=== PATIENT | male | born 1945 | race Caucasian/White ===

== ENCOUNTER 2020-02-01 08:00 | Outpatient (REF) | payer MEDICARE, OTHER, SELFPAY ==
[2020-02-01 09:28] LABS: Anion Gap 13 (12-20); Blood Urea Nitrogen 15 mg/dL (9-16); Carbon Dioxide 24 mmol/L (22-29); Chloride 106 mmol/L (96-108); Estimated Glomerular Filt Rate > 60; Potassium 3.9 mmol/l (3.3-5.1); Sodium 139 mmol/L (135-145)
== END 2020-02-01 08:01 | disposition home or self-care (01) ==
LOC: HO.LAB 08:00
PROVIDERS: PCP Family Medicine; Visit Provider Family Medicine
DX: I10 Essential (primary) hypertension (principal)
CPT/HCPCS: 80051; 82565; 84520

== ENCOUNTER 2020-12-20 07:47 | Outpatient (REF) | payer MEDICARE, OTHER, SELFPAY ==
[2020-12-20 08:45] LABS: Anion Gap 12 (12-20); Blood Urea Nitrogen 13 mg/dL (9-16); Carbon Dioxide 26 mmol/L (22-29); Chloride 107 mmol/L (96-108); Estimated Glomerular Filt Rate > 60; Potassium 4.1 mmol/L (3.3-5.1); Sodium 141 mmol/L (135-145)
== END 2020-12-20 07:48 | disposition home or self-care (01) ==
LOC: HO.LAB 07:47
PROVIDERS: PCP Family Medicine; Visit Provider Family Medicine
DX: I10 Essential (primary) hypertension (principal)
CPT/HCPCS: 36415; 80051; 82565; 84520

== ENCOUNTER 2021-07-15 06:42 | Outpatient (REF) | payer MEDICARE, OTHER, SELFPAY ==
[2021-07-15 08:21] LABS: Anion Gap 12 (12-20); Blood Urea Nitrogen 16 mg/dL (9-16); Carbon Dioxide 25 mmol/L (22-29); Chloride 106 mmol/L (96-108); Estimated Glomerular Filt Rate > 60; Potassium 3.9 mmol/L (3.3-5.1); Sodium 139 mmol/L (135-145); Uric Acid 4.5 mg/dL (3.4-7.0)
== END 2021-07-15 06:43 | disposition home or self-care (01) ==
LOC: HO.LAB 06:42
PROVIDERS: PCP Family Medicine; Visit Provider Family Medicine
DX: I10 Essential (primary) hypertension (principal); M10.9 Gout, unspecified
CPT/HCPCS: 36415; 80051; 82565; 84520; 84550

== ENCOUNTER 2022-01-31 07:00 | Outpatient (REF) | payer MEDICARE, OTHER, SELFPAY ==
[2022-01-31 08:09] LABS: Anion Gap 11 (12-20); Blood Urea Nitrogen 15 mg/dL (9-16); Carbon Dioxide 27 mmol/L (22-29); Chloride 104 mmol/L (96-108); Estimated Glomerular Filt Rate > 60; Sodium 138 mmol/L (135-145)
== END 2022-01-31 07:01 | disposition home or self-care (01) ==
LOC: HO.LAB 07:00
PROVIDERS: PCP Family Medicine; Visit Provider Family Medicine
DX: I10 Essential (primary) hypertension (principal)
CPT/HCPCS: 36415; 80051; 82565; 84520

== ENCOUNTER → 2022-02-03 09:26 | Outpatient (REF) | payer MEDICARE, OTHER, SELFPAY ==
--- NOTE | 2022-02-03 09:33 | CA_ITS ---
Transthoracic Echocardiogram Patient (Last, First, Middle): Miguel Mao, Gender: Male Date of : 1945 Age: 77 Procedure Date: 02/03/2022 Procedure Type: Transthoracic Echocardiogram Location: OP Height: 177.8 cm Weight: 99.79 kg BSA: 2.17 m2 Heart Rate: 59 bpm BP: 145 / 75 mmHg Police Crime Scene Technician: ALBERTA Parra MD: Robby Lopez MD High Density Press Operator: Josue Saenz MD Symptoms: R01.1 CARDIAC MURMUR R/O ,MR Study Quality: Adequate ECG Rhythm: Bradycardia Conclusions: - 1. Normal LV systolic function with impaired relaxation filling pattern with mild asymmetric septal hypertrophy next 2. Fibrocalcific aortic valve changes noted with no significant aortic stenosis with trivial aortic regurgitation 3. No gross pericardial effusion Findings Left Ventricle Normal left ventricular size, thickness, and systolic function. The visually estimated ejection fraction is between 60-65%. Regional wall motion abnormalities can not be excluded due to suboptimal endocardial definition. Spectral Doppler is indicative of an impaired relaxation filling pattern. E/E prime ratio is between 8 and 15 consistent with indeterminate filling pressures. There is mild septal asymmetric hypertrophy. Right Ventricle Normal right ventricular cavity size and systolic function. Atria The left atrium is normal in size. There is lipomatous hypertrophy of the interatrial septum. Interatrial shunt cannot be excluded. The right atrium is normal in size. Aortic Valve There is mild calcification of the aortic valve. There is moderate thickening of the aortic valve. There is no aortic valve stenosis. There is trace (trivial) aortic valve regurgitation. Mitral Valve There is mild anterior and posterior mitral leaflet thickening. There is trace mitral valve regurgitation. There is no mitral valve stenosis. Pulmonic Valve The pulmonic valve was not well visualized. Tricuspid Valve Likely normal tricuspid valve structure and function. Tricuspid regurgitation envelope is inadequate for calculation of right ventricular systolic pressure. Great Vessels All visible segments of the aorta are normal in size. The pulmonary artery was not well visualized. Venous The inferior vena cava was not well visualized. Pericardium/Pleural There is no evidence of pericardial effusion. Prior Study Comparison No prior study available for comparison. Measurements 2D Linear Measurements IVSd: 1.23 0.6-0.9/0.6-1.0 cm LVIDd: 5.13 3.9-5.3/4.2-5.9 cm LVIDd Index: 2.36 2.4-3.2/2.2-3.1 cm/m2 LVIDs: 2.91 2.0-3.6 cm LVPWd: 0.97 0.7-1.1 cm LA Diam: 3.70 2.7-3.8/3.0-4.0 cm LAIDs Index: 1.71 1.5-2.3 cm/m2 LV Mass: 269.52 67-162/88-224 g LV Mass Index: 124.20 43-95/49-115 g/m2 LVOT Diam: 2.20 3.0+(-)1.3 cm 2D Systolic Function EF 4C: 65.70 >55% EF 2C: 54.40 >55% EF BiP: 60.90 >55% Mitral Valve MV Pk E: 0.55 MV PK A: 0.77 MV Decel Time: 335.00 E/A: 0.70 E'Lateral: 7.83 E'Medial: 4.68 E/E' Med: 11.70 E/E' Lat: 7.00 PHT: 98.00 MVA PHT: 2.24 Decel [place]: 1.64 Aortic Valve AoV Pk Angelo: 1.55 AoV Mn Angelo: 1.04 AoV VTI: 0.35 AoV Pk Grad: 10.00 Aov Mn Grad: 5.00 WARREN Cont.VTI: 2.22 LVOT LVOT Pk Angel[place]: 0.87 LVOT Mn Angelo: 0.61 LVOT VTI: 0.20 LVOT Pk Grad: 3.00 LVOT Mn Grad: 2.00 LVOT Diam: 2.20 LVOT Area: 3.80 Diastolic Function MV Pk E: 0.55 MV Pk A: 0.77 E/A: 0.70 E'Medial: 4.68 E/E' Med: 11.70 E' Laterial: 7.83 E/E' Lat: 7.00 Right Ventricle TAPSE (mm): 19.90 TVS' Angel[place]: 12.60 Tricuspid Valve RA Press: 3.00 Great Vessels Aorta Sinus of Valsalva: 3.30 2.0-3.5 cm Ao Asc: 3.30 2.1-3.4 cm Pulmonary Valve PV Pk Angelo: 1.06 Peak PV Grad: 4.00 Updated in Other Vendor System with Status of Final Josue Saenz MD electronically signed on 02/06/2022 5:16:19 PM with status of Final
== END ==
LOC: HO.CARD 09:26
PROVIDERS: PCP Family Medicine; Visit Provider Family Medicine
DX: R01.1 Cardiac murmur, unspecified (principal)
CPT/HCPCS: 93306

== ENCOUNTER 2022-05-09 13:32 | Outpatient (REF) | payer OTHER, SELFPAY | END 2022-05-09 13:33 | disposition home or self-care (01) | LOC: HO.LNP 13:32 | PROVIDERS: Visit Provider Internal Medicine | DX: L72.9 Follicular cyst of the skin and subcutaneous tissue, unspecified (principal) | CPT/HCPCS: 87070; 87077; 87186; 87205 ==

== ENCOUNTER → 2022-05-15 10:25 | Outpatient (BNVA) | payer OTHER, MEDICAID, SELFPAY | PROVIDERS: PCP Family Medicine; Referring Provider Family Medicine; Visit Provider Surgery | DX: L72.3 Sebaceous cyst (principal) | CPT/HCPCS: 99202 ==

== ENCOUNTER 2022-08-08 06:28 | Outpatient (REF) | payer MEDICARE, SELFPAY ==
[2022-08-08 08:13] LABS: Anion Gap 14 (12-20); Carbon Dioxide 25 mmol/L (22-29); Chloride 106 mmol/L (96-108); Estimated Glomerular Filt Rate > 60; Potassium 4.2 mmol/L (3.3-5.1); Sodium 141 mmol/L (135-145); Uric Acid 4.7 mg/dL (3.4-7.0)
== END 2022-08-08 06:29 | disposition home or self-care (01) ==
LOC: HO.LAB 06:28
PROVIDERS: PCP Family Medicine; Visit Provider Family Medicine
DX: I10 Essential (primary) hypertension (principal); M10.9 Gout, unspecified
CPT/HCPCS: 36415; 80051; 82565; 84550

== ENCOUNTER 2023-02-09 08:21 | Outpatient (REF) | payer MEDICARE, SELFPAY ==
[2023-02-09 10:45] LABS: Anion Gap 16 (12-20); Blood Urea Nitrogen 13 mg/dL (9-16); Carbon Dioxide 21 mmol/L (22-29); Chloride 108 mmol/L (96-108); Estimated Glomerular Filt Rate > 60; Potassium 3.7 mmol/L (3.3-5.1); Sodium 141 mmol/L (135-145)
== END 2023-02-09 08:22 | disposition home or self-care (01) ==
LOC: HO.LAB 08:21
PROVIDERS: PCP Family Medicine; Visit Provider Family Medicine
DX: I10 Essential (primary) hypertension (principal)
CPT/HCPCS: 36415; 80051; 82565; 84520

== ENCOUNTER → 2023-06-19 09:50 | Outpatient (REF) | payer MEDICARE, SELFPAY ==
--- NOTE | 2023-06-19 09:53 | CA_ITS ---
Transthoracic Echocardiogram Patient (Last, First, Middle): Miguel Mao, Gender: Male Date of : 1945 Age: 78 Procedure Date: 06/19/2023 Procedure Type: Transthoracic Echocardiogram Location: OP Height: 203.2 cm Weight: 98.88 kg BSA: 2.39 m2 Heart Rate: 54 bpm BP: 136 / 74 mmHg Public Relations Account Supervisor: SB Referring MD: Robby Lopez MD Symptoms: R01.1 CA MURMUR I10 HTN R/O JAYLON Study Quality: Adequate ECG Rhythm: Bradycardia Conclusions: - The left ventricular systolic function is low normal. The visually estimated ejection fraction is between 50-55%. - There is moderate septal asymmetric hypertrophy. - There is mild calcification of the aortic valve. Findings Left Ventricle Normal left ventricular cavity size. The left ventricular systolic function is low normal. The visually estimated ejection fraction is between 50-55%. There is mild global hypokinesis. Diastolic function is normal for age. There is moderate septal asymmetric hypertrophy. LV peak GLS -15.2% (reduced). Right Ventricle Mildly increased right ventricular cavity size. There is low normal right ventricular systolic function. Atria Both atria are normal in size. Aortic Valve There is a normal trileaflet aortic valve. There is mild calcification of the aortic valve. There is no aortic valve stenosis. There is no aortic valve regurgitation. Mitral Valve The mitral valve appears normal. There is no mitral valve regurgitation. There is no mitral valve stenosis. Pulmonic Valve The pulmonic valve is likely normal. Tricuspid Valve Normal tricuspid valve structure. There is no tricuspid valve regurgitation. Tricuspid regurgitation envelope is inadequate for calculation of right ventricular systolic pressure. Great Vessels The asc aorta and aortic arch are normal in size. Venous The inferior vena cava was not well visualized. Pericardium/Pleural There is no evidence of pericardial effusion. Prior Study Comparison No significant change compared to prior study dated: 12/04/2021. Measurements 2D Linear Measurements IVSd: 1.36 0.6-0.9/0.6-1.0 cm LVIDd: 5.13 3.9-5.3/4.2-5.9 cm LVIDd Index: 2.15 2.4-3.2/2.2-3.1 cm/m2 LVIDs: 2.73 2.0-3.6 cm LVPWd: 0.87 0.7-1.1 cm LA Diam: 3.90 2.7-3.8/3.0-4.0 cm LAIDs Index: 1.63 1.5-2.3 cm/m2 LV Mass: 273.89 67-162/88-224 g LV Mass Index: 114.60 43-95/49-115 g/m2 LVOT Diam: 2.20 3.0+(-)1.3 cm 2D Systolic Function EF 4C: 47.30 >55% EF 2C: 51.70 >55% EF BiP: 51.20 >55% Mitral Valve MV Pk E: 0.82 MV PK A: 0.74 MV Decel Time: 223.00 E/A: 1.10 E'Lateral: 6.53 E'Medial: 4.90 E/E' Med: 16.70 E/E' Lat: 12.60 PHT: 65.00 MVA PHT: 3.38 Decel [place]: 3.68 Aortic Valve AoV Pk Angelo: 1.59 AoV Mn Angelo: 1.11 AoV VTI: 0.38 AoV Pk Grad: 10.00 Aov Mn Grad: 5.00 WARREN Cont.VTI: 2.31 LVOT LVOT Pk Angelo: 0.89 LVOT Mn Angelo: 0.65 LVOT VTI: 0.23 LVOT Pk Grad: 3.00 LVOT Mn Grad: 2.00 LVOT Diam: 2.20 LVOT Area: 3.80 Diastolic Function MV Pk E: 0.82 MV Pk A: 0.74 E/A: 1.10 E'Medial: 4.90 E/E' Med: 16.70 E' Laterial: 6.53 E/E' Lat: 12.60 Right Ventricle TAPSE (mm): 19.30 Tricuspid Valve RA Press: 3.00 Great Vessels Aorta Sinus of Valsalva: 3.60 2.0-3.5 cm Ao Asc: 3.50 2.1-3.4 cm Ao Arch: 3.10 Pulmonary Valve PV Pk Angelo: 0.89 Peak PV Grad: 3.00 Updated in Other Vendor System with Status of Final Cruz Finley MD electronically signed on 06/20/2023 12:40:25 PM with status of Final
== END ==
LOC: HO.CARD 09:50
PROVIDERS: PCP Family Medicine; Visit Provider Family Medicine
DX: R01.1 Cardiac murmur, unspecified (principal); I10 Essential (primary) hypertension
CPT/HCPCS: 93306; 93356

== ENCOUNTER → 2023-06-19 09:53 | Outpatient (BNV) | payer MEDICARE, SELFPAY | PROVIDERS: PCP Family Medicine; Visit Provider Internal Medicine | DX: I35.8 Other nonrheumatic aortic valve disorders (principal); I42.2 Other hypertrophic cardiomyopathy | CPT/HCPCS: 93306; 93356 ==

== ENCOUNTER 2023-08-04 06:14 | Outpatient (REF) | payer MEDICARE, SELFPAY ==
[2023-08-04 08:50] LABS: Alanine Aminotransferase 23 U/L (0-40); Anion Gap 14 (12-20); Aspartate Amino Transferase 26 U/L (5-37); Blood Urea Nitrogen 16 mg/dL (9-16); Carbon Dioxide 22 mmol/L (22-29); Chloride 108 mmol/L (96-108); Cholesterol 149 mg/dL (<200); Estimated Glomerular Filt Rate > 60; Glucose Fasting 102 mg/dL (60-99); HDL Cholesterol 33 mg/dL (>40); LDL Cholesterol Calculated 84 mg/dL (<100); Potassium 3.8 mmol/L (3.3-5.1); Sodium 140 mmol/L (135-145); Triglycerides 161 mg/dL (<150)
[2023-08-04 09:08] LABS: Estimated Average Glucose 111 mg/dL; Hemoglobin A1c % 5.5 % (<6.0)
== END 2023-08-04 06:15 | disposition home or self-care (01) ==
LOC: HO.LAB 06:14
PROVIDERS: PCP Family Medicine; Visit Provider Family Medicine
DX: I10 Essential (primary) hypertension (principal); Z86.39 Personal history of other endocrine, nutritional and metabolic disease
CPT/HCPCS: 36415; 80051; 80061; 82565; 82947; 83036; 84450; 84460; 84520

== ENCOUNTER → 2023-09-15 10:06 | Outpatient (REF) | payer MEDICARE, SELFPAY ==
--- NOTE | 2023-09-15 10:09 | HM_ITS ---
Conclusion: 1. Patient was monitored for total period of 2 days and 23 hours 2. Baseline was normal sinus rhythm with average heart of 61 beats per minute 3. No significant pauses noted but frequent sinus bradycardia noted with heart rate below 60 beats per minute 44% of time 4. Occasional Mobitz type 1 second-degree AV block noted 5. Occasional PACs and PVCs noted without any sustained arrhythmias 6. No patient marked events MTDD
== END ==
LOC: HO.CARD 10:06
PROVIDERS: PCP Family Medicine; Visit Provider Family Medicine
DX: I42.2 Other hypertrophic cardiomyopathy (principal); R42 Dizziness and giddiness
CPT/HCPCS: 93242

== ENCOUNTER → 2023-09-15 10:09 | Outpatient (BNV) | payer MEDICARE, SELFPAY | PROVIDERS: PCP Family Medicine; Visit Provider Internal Medicine Cardiovascular Disease | DX: R00.1 Bradycardia, unspecified (principal) | CPT/HCPCS: 93244 ==

== ENCOUNTER 2023-10-08 10:23 | Outpatient (AMB) | payer MEDICARE, SELFPAY ==
[2023-10-08 10:28] VITALS: BP 146/68; PULSE 54; BMI 31.1
--- NOTE | 2023-10-08 10:28 | MHC.OFFVIS ---
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 There is mention of shortness of breath but repeatedly asked him and he states he has got absolutely no shortness of breath. Hence not clear. He also denies any other complaints like exertional chest pains. Otherwise, no known cardiac history including coronary disease or myocardial infarction or cardiomyopathy or in fact any other cardiac concerns. Within limits of his activity, no specific concerns. He does have longstanding hypertension on medications. [facility] Medical History (Updated 10/08/23 @ 10:58 by Cruz Finley MD) Hypertension Family History (Updated 10/08/23 @ 10:33 by Rain Dukes CMA) Son Colon cancer Brother History of open heart surgery Social History (Updated 05/15/22 @ 10:37 by GISELA Gallardo) Alcohol intake: former Year quit: 2010 Patient Tobacco Use Status: Never used Tobacco Review of Systems Const Denies chills, Denies daytime sleepiness, Denies fatigue, Denies fever(s), Denies poor appetite, Denies snoring, Denies stops breathing during sleep, Denies weakness, Denies weight gain and Denies weight loss Eyes Denies loss of vision ENT Denies dizziness and Denies hearing loss Card Denies chest pain, Denies irregular heart rhythm, Denies claudication, Denies leg edema, Denies lightheadedness, Denies palpitations, Denies dyspnea on exertion and Denies orthopnea Resp Denies cough, Denies excessive phlegm production, Denies dyspnea on exertion, Denies snoring and Denies wheezing GI Denies abdominal pain, Denies hematochezia, Denies change in bowel habits, Denies nausea and Denies vomiting Denies dysuria and Denies urinary frequency Musc Denies arthralgias, Denies muscle weakness, Denies numbness and Denies other Skin/Breast Denies nail changes and Denies rash Neuro Denies Abnormal speech present, Denies dizziness, Denies loss of vision, Denies memory loss, Denies numbness and Denies weakness Psych Denies depression and Denies memory loss Endo Denies fatigue and Denies palpitations Kelechi/Lymph Denies easy bruising Aller/Immun Denies wheezing Physical Exam Vital Signs: Last Vital Signs Pulse 54 10/08/23 10:28 BP 146/68 H 10/08/23 10:28 BMI result Body Mass Index 31.1 Const General: comfortable and no acute distress Orientation/consciousness: patient oriented x3 HEENT Other: Unremarkable Head: Yes normal to inspection Neck Neck: Yes normal visual inspection Chest Chest palpation & inspection: normal inspection of the chest Resp Auscultation: clear to auscultation bilaterally Cardio Palpation: normal PMI Heart sounds: S1 normal heart sound present, S2 normal heart sound present, no gallops, Murmur heart sound present systolic II/ and at the right sternal border and no rubs GI Palpation (GI): Soft to palpation Back/Spine/Pelvis Other: unremarkable Skin General skin exam: no rashes or lesions noted Neuro General: patient oriented x3 Speech: No Abnormal speech present Extrem General: Yes normal to inspection Psych Mental Status: mental status grossly normal Office Procedures EKG Details: EKG with underlying sinus bradycardia at 54/Min; [place] prolongation to 248 milliseconds; [place]. [id number], Complete Assessment & Plan Assessment & Plan (1) Asymmetric septal hypertrophy: Code(s): I51.7 - Cardiomegaly Category: Medical (2) Aortic valve calcification: Code(s): I35.9 - Nonrheumatic aortic valve disorder, unspecified Category: Medical (3) Sinus bradycardia: Code(s): R00.1 - Bradycardia, unspecified Category: Medical (4) Mobitz type 1 second degree atrioventricular block: Code(s): I44.1 - Atrioventricular block, second degree Category: Medical (5) Essential hypertension: Code(s): I10 - Essential (primary) hypertension Category: Medical Plan Cardiac studies reviewed. EKG as above shows sinus bradycardia with prolonged [place]. Holter monitor shows underlying sinus rhythm, frequent sinus bradycardia, occasional Mobitz type 1 second-degree heart block with rare PACs/PVCs. Echocardiogram with LVEF of 50-55%. Slightly reduced peak global longitudinal strain at -15.2%. Moderate septal hypertrophy. Mild aortic valve calcification without any significant dysfunction. Clinically, asymptomatic. He seems to be on beta-blockers and he states dose has been recently decreased. We can stop it completely. He states that home blood pressures only the 120s to 130s. Advised to follow-up on that. Based on BP trend, may need to increase the lisinopril dosing. Septal hypertrophy is probably related to the longstanding hypertension. No specific management for that apart from hypertension treatment. With regard to aortic valve calcification, there is increased chance of aortic stenosis and we can follow-up with echocardiograms as needed. Coding Level of Care Code New Pt Level 4 (23327) Diagnoses Asymmetric septal hypertrophy I51.7 Aortic valve calcification I35.9 Sinus bradycardia R00.1 Mobitz type 1 second degree atrioventricular block I44.1 Essential hypertension I10 CPT Codes EKG - CPT: 63067-[id number], Complete ([id number])
== END 2023-10-08 10:52 | disposition home or self-care (01) ==
PROVIDERS: PCP Family Medicine; Visit Provider Internal Medicine
DX: I51.7 Cardiomegaly (principal); I35.9 Nonrheumatic aortic valve disorder, unspecified; R00.1 Bradycardia, unspecified; I44.1 Atrioventricular block, second degree; I10 Essential (primary) hypertension
CPT/HCPCS: 93010; 99214

== ENCOUNTER → 2023-10-08 10:23 | Outpatient (BNVA) | payer MEDICARE, SELFPAY | PROVIDERS: PCP Family Medicine; Visit Provider Internal Medicine | DX: I51.7 Cardiomegaly (principal); I35.9 Nonrheumatic aortic valve disorder, unspecified; I44.1 Atrioventricular block, second degree; I10 Essential (primary) hypertension; R00.1 Bradycardia, unspecified | CPT/HCPCS: 93005; 99212 ==

== ENCOUNTER → 2024-04-07 12:34 | Outpatient (BNVA) | payer MEDICARE, SELFPAY | PROVIDERS: PCP Family Medicine; Visit Provider Internal Medicine | DX: I10 Essential (primary) hypertension (principal); I51.7 Cardiomegaly; I35.9 Nonrheumatic aortic valve disorder, unspecified; I44.1 Atrioventricular block, second degree; R00.1 Bradycardia, unspecified | CPT/HCPCS: 99212 ==

== ENCOUNTER 2024-04-26 07:07 | Outpatient (REF) | payer MEDICARE, SELFPAY ==
[2024-04-26 08:22] LABS: Anion Gap 12 (12-20); Blood Urea Nitrogen 16 mg/dL (9-16); Carbon Dioxide 24 mmol/L (22-29); Chloride 108 mmol/L (96-108); Estimated Glomerular Filt Rate > 60; Potassium 3.9 mmol/L (3.3-5.1); Sodium 140 mmol/L (135-145)
== END 2024-04-26 07:08 | disposition home or self-care (01) ==
LOC: HO.LAB 07:07
PROVIDERS: PCP Family Medicine; Visit Provider Family Medicine
DX: I10 Essential (primary) hypertension (principal)
CPT/HCPCS: 36415; 80051; 82565; 84520

== ENCOUNTER 2024-05-31 10:00 | Outpatient (AMB) | payer MEDICARE, SELFPAY ==
[2024-05-31 10:39] VITALS: BP 140/90; PULSE 74; O2SAT 98
--- NOTE | 2024-05-31 10:39 | MHC.OFFWIV ---
Intake Vital Signs 05/31/24 10:39 Weight 227 lb BP 140/90 H Blood Pressure Location Rt brachial Position Sitting Pulse 74 Pulse Source Pulse Oximeter Pulse Oximetry (%) 98 Oxygen Delivery Method Room Air Intake Visit Reasons: EP Cyst/rash on LT side of face/under eye Intake Note: Patient here for possible cyst on left eye that started yesterday. Patient Tobacco Use Status: Never used Tobacco Allergies No Known Allergies [No Known Allergies*] Allergy (Unverified 05/31/24 10:41) Do you need a note to return to daycare/school/sports/work: No HPI HPI Comments History of Present Illness Details History of Present Illness - The patient is a 79-year-old male presenting with left eye swelling under his eye and towards his hairline x2d. - Yesterday, noticed a cyst or bubble on the left side of the left eye which was managed with ice application. - Today, reported progression to hardness and tenderness, with swelling and warmth underneath the left eye. - Denies systemic symptoms such as fever, and ocular symptoms including double vision or visual changes. 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 - no medications attempted for relief. Physical Exam General: Cooperative, healthy appearing, comfortable, no acute distress and well developed Orientation: Patient oriented x3 Limitations: No limitations Head: Normal to inspection Ears: Hearing grossly normal bilaterally Nose: Normal External nose present Face and sinus: edema and erythema of lower eyelid and infraorbital region, with warmth, extending to superior zygomatic area which also has a 1cm area of induration. Eyes: Appearance normal in the right eye; left eye has swelling infraorbital, as above Neck: Normal visual inspection and Yes full ROM Respiratory: Normal respiratory effort and able to speak in complete sentences. Skin: as above Neuro: Patient oriented x3 Extremities: Normal to inspection [facility] Medical History (Updated 05/31/24 @ 10:51 by Julissa Cervantes PA-C) Hypertension Family History Son Colon cancer Brother History of open heart surgery Social History Alcohol intake: former Year quit: 2010 Patient Tobacco Use Status: Never used Tobacco Review of Systems Const All systems reviewed & are unremarkable except as noted in HPI and below Physical Exam Vital Signs: Last Vital Signs Pulse 74 05/31/24 10:39 BP 140/90 H 05/31/24 10:39 Pulse Ox 98 05/31/24 10:39 Oxygen Delivery Method Room Air 05/31/24 10:39 Assessment & Plan Assessment & Plan (1) Preseptal cellulitis of left lower eyelid: Code(s): L03.213 - Periorbital cellulitis Plan: VSS, pt well appearing and PE remarkable for preseptal cellulitis and a small abscess on the left upper cheek. Sent Keflex and Doxy to cover MRSA. The current management strategy involves vigilant observation of the left periorbital swelling for any signs of worsening conditions, including any seeming like his eye is swollen or pushing out, eye movement discomfort/pain, fever development, or visual changes. Considering the patient's history of glaucoma surgery in the affected eye, careful monitoring is required to prevent any compromise to ocular function, particularly as this is the patient's good eye. . Patient was informed and verbally consented to the use of an ambient scribe for clinic note documentation during this visit. (2) Abscess of external cheek, left: Code(s): L02.01 - Cutaneous abscess of face Plan: as above Medications: New cephalexin 500 mg PO Q6H 28 caps 0RF doxycycline hyclate 100 mg PO BID 14 tabs 0RF Coding Level of Care Code New Pt Level 3 (49258) Diagnoses Preseptal cellulitis of left lower eyelid L03.213 Abscess of external cheek, left L02.01
--- OUTSIDE RECORDS SUMMARY | 2024-05-31 11:39 | XMS_ITS | Patient Health Record ---
[facility] Address [address] [place] [address] Care Team Providers Care Color Weigher Name Role Phone John FAUSTIN, Robby Primary Care Provider UnavailTanya Lyn Unavailable [phone] Allergies Allergen (clinical drug ingredient) Drug/Non Drug Allergy documented on EMR Reaction Allergy Type Onset Date Status Pollen Pollen Unknown Allergy Active Reason For Referral No Information Medications Medication SIG (Take, Route, Frequency, Duration) Notes Start Date End Date Status amLODIPine Besylate 10 MG 1 tablet Orall y Once a day for 30 day(s) Active Cephalexin 500 MG 1 capsule Orally ligia ry 12 hrs for 7 days Active Cephalexin 500 MG 1 capsule Orally ligia ry 12 hrs for 3 days Active Metoprolol Tartrate 25 MG 1 tablet with food Orally Twice a day for 30 day(s) Active Lisinopril 20 MG 1 tablet Orally Once a day for 30 day(s) Active Allopurinol 300 MG 1 tablet Orally Once a day for 30 day(s) Active Gabapentin 300 MG 1 capsule Orally Onc e a day for 30 day(s) Active Social History Tobacco Use: Social History Observation Description Date Details (start date - stop date) Never Smoker NA - NA Tobacco Use/Smoking Question Answer Notes Are you a: nonsmoker Additional Findings: Tobacco Non-User Current no n-smoker Alcohol Screen Question Answer Notes Did you have a drink containing alcohol in the p ast year? No Points 0 Interpretation Negative Tobacco use other than smoking: Question Answer Notes Are you an other tobacco user? No Plan Of Treatment No Information Insurance Providers Payer Name Payer Address Payer Phone Subscriber Number Group Number Insured Name Patient Relationship to Insured Coverage Start Date Coverage End Date [employer] [address] [place] [address] [id number] Miguel Charles Self - patient is the insured Medical (General) History Medical History History ICD Code Cataracts Gout High blood pressure Poor circulation Chicken pox Surgical History Surgery Date(Month/Year)
== END 2024-05-31 11:15 | disposition home or self-care (01) ==
PROVIDERS: PCP Family Medicine; Visit Provider Physician Assistant
DX: L03.213 Periorbital cellulitis (principal); L02.01 Cutaneous abscess of face

== ENCOUNTER → 2024-05-31 10:00 | Outpatient (BNVA) | payer MEDICARE, SELFPAY | PROVIDERS: PCP Family Medicine; Visit Provider Physician Assistant | DX: L03.213 Periorbital cellulitis (principal); L02.01 Cutaneous abscess of face | CPT/HCPCS: 99202 ==

== ENCOUNTER → 2024-08-03 10:02 | Outpatient (REF) | payer MEDICARE, SELFPAY ==
--- NOTE | 2024-08-03 10:09 | CA_ITS ---
Transthoracic Echocardiogram Patient (Last, First, Middle): Miguel Mao, Gender: Male Date of : 1945 Age: 79 Procedure Date: 08/03/2024 Procedure Type: Transthoracic Echocardiogram Location: OP Height: 177.8 cm Weight: 102.06 kg BSA: 2.19 m2 Heart Rate: bpm BP: 140 / 90 mmHg Php Mysql Web Developer: NAHED Referring MD: Robby Lopez MD Symptoms: I42.2 OTHER HYPERTROPHIC CARDIOMYOPATHY Study Quality: Fair ECG Rhythm: Sinus Conclusions: - The left ventricular systolic function is normal. The calculated ejection fraction is 59% by biplane method. - There is mild septal asymmetric hypertrophy. - No obvious valvular pathology seen on this study. Findings Left Ventricle Normal left ventricular cavity size. The left ventricular systolic function is normal. The calculated ejection fraction is 59% by biplane method. There is no evidence of regional wall motion abnormalities. Diastolic function is normal for age. There is mild septal asymmetric hypertrophy. Right Ventricle Normal right ventricular cavity size. There is low normal right ventricular systolic function. Atria The left atrium is mildly dilated. The right atrium is normal in size. Aortic Valve There is mild calcification of the aortic valve. There is no aortic valve stenosis. There is no aortic valve regurgitation. Mitral Valve The mitral valve appears normal. There is no mitral valve regurgitation. There is no mitral valve stenosis. Pulmonic Valve The pulmonic valve is likely normal. Tricuspid Valve There is no tricuspid valve regurgitation. Tricuspid regurgitation envelope is inadequate for calculation of right ventricular systolic pressure. Great Vessels The asc aorta and aortic arch are normal in size. Venous The inferior vena cava is normal in size and collapses greater than 50% with inspiration. Pericardium/Pleural There is no evidence of pericardial effusion. Prior Study Comparison No significant change compared to prior study dated: 06/19/2023. Recommendations, Care & Conclusions No obvious valvular pathology seen on this study. Measurements 2D Linear Measurements IVSd: 1.26 0.6-0.9/0.6-1.0 cm LVIDd: 4.87 3.9-5.3/4.2-5.9 cm LVIDd Index: 2.22 2.4-3.2/2.2-3.1 cm/m2 LVIDs: 3.37 2.0-3.6 cm LVPWd: 0.82 0.7-1.1 cm LA Diam: 3.10 2.7-3.8/3.0-4.0 cm LAIDs Index: 1.42 1.5-2.3 cm/m2 LV Mass: 229.46 67-162/88-224 g LV Mass Index: 104.78 43-95/49-115 g/m2 LVOT Diam: 2.20 3.0+(-)1.3 cm 2D Systolic Function EF 4C: 62.60 >55% EF 2C: 53.70 >55% EF BiP: 59.00 >55% Mitral Valve MV Pk E: 0.56 MV PK A: 0.75 MV Decel Time: 308.00 E/A: 0.70 E'Lateral: 8.49 E'Medial: 4.68 E/E' Med: 11.90 E/E' Lat: 6.60 PHT: 90.00 MVA PHT: 2.44 Decel [place]: 1.81 Aortic Valve AoV Pk Angelo: 1.69 AoV Mn Angel[place]: 1.23 AoV VTI: 0.42 AoV Pk Grad: 11.00 Aov Mn Grad: 7.00 WARREN Cont.VTI: 2.32 LVOT LVOT Pk Angel[place]: 0.95 LVOT Mn Angelo: 0.56 LVOT VTI: 0.26 LVOT Pk Grad: 4.00 LVOT Mn Grad: 2.00 LVOT Diam: 2.20 LVOT Area: 3.80 Diastolic Function MV Pk E: 0.56 MV Pk A: 0.75 E/A: 0.70 E'Medial: 4.68 E/E' Med: 11.90 E' Laterial: 8.49 E/E' Lat: 6.60 Right Ventricle TAPSE (mm): 25.70 TVS' Angel[place]: 8.59 Great Vessels Aorta Sinus of Valsalva: 3.53 2.0-3.5 cm Ao Asc: 3.30 2.1-3.4 cm Ao Arch: 2.70 Updated in Other Vendor System with Status of Final Cruz Finley MD electronically signed on 08/04/2024 4:14:42 PM with status of Final
--- OUTSIDE RECORDS SUMMARY | 2024-08-03 10:38 | XMS_ITS | Patient Health Record ---
[facility] Organization [facility] Address [address] [place] [address] Care Team Providers Care Collator Name Role Phone John FAUSTIN, Robby Primary Care Provider UnavailTanya Lyn Unavailable [phone] Allergies Allergen (clinical drug ingredient) Drug/Non Drug [...] Inc [address] [place] [address] [id number] Miguel Charles Self - patient is the insured Medical (General) History Medical History History ICD Code Cataracts Gout High blood pressure Poor circulation Chicken pox Surgical History Surgery Date(Month/Year)
== END ==
LOC: HO.CARD 10:02
PROVIDERS: Visit Provider Family Medicine
DX: I42.2 Other hypertrophic cardiomyopathy (principal)
CPT/HCPCS: 93306

== ENCOUNTER → 2024-08-03 10:09 | Outpatient (BNV) | payer MEDICARE, SELFPAY | PROVIDERS: Visit Provider Internal Medicine | DX: I42.2 Other hypertrophic cardiomyopathy (principal); I35.8 Other nonrheumatic aortic valve disorders | CPT/HCPCS: 93306 ==

== ENCOUNTER 2024-08-07 06:34 | Emergency (ER) | payer MEDICARE, MEDICAID, SELFPAY ==
--- NOTE | ~2024-08-07 | XR_ITS ---
CLINICAL HISTORY: pain and swelling ; PT states he scraped it tuesday 08/01 while working on car, left elbow scrape came in contact with used car motor oil. 4 view left elbow Comparison: None Findings: Bones intact. No dislocations. Mild degenerative changes throughout the elbow. No joint effusion. No radiopaque foreign body. IMPRESSION: Mild degenerative changes. No fracture, malalignment or suspicious bone lesion. No soft tissue gas. This document has been electronically signed by: Evangelista Rodriguez MD on 08/07/2024 09:12:26
[2024-08-07 06:37] VITALS: BP 131/69; PULSE 80; RESP 18; TEMP 36.6; O2SAT 97; BMI 32.3
--- NOTE | 2024-08-07 07:22 | PC.NURSE ---
left elbow has small wound with reddness/warmth in area. no drainage. awaits .
[2024-08-07 08:00] VITALS: BP 152/72; PULSE 69; RESP 19; TEMP 36.6; O2SAT 97
--- NOTE | 2024-08-07 08:41 | ED.GENADULT ---
HPI - General Adult General Chief complaint: Extremity Problem Stated complaint: elbow infection Time Seen by Provider: 08/07/24 08:40 Source: patient, RN notes reviewed and old records reviewed Mode of arrival: ambulatory Limitations: no limitations History of Present Illness ED Provider: Jerry [facility] narrative: Patient is a 79-year-old male presenting to the emergency department with complaint of pain and swelling, redness to left elbow. He states that he scraped his elbow accidentally on Thursday while performing an oil change. Now questioning infection as he noticed a small pustule in the center of the erythema. Denies fevers. Denies any decreased range of motion to elbow. Unknown last Tdap. MD complaint: elbow pain Onset (ago): day(s) Related Data Home Medications ?Medication ?Instructions ?Recorded ?Confirmed allopurinol 300 mg tablet 300 mg PO DAILY 10/08/23 04/07/24 amlodipine 10 mg tablet 10 mg PO DAILY 10/08/23 04/07/24 gabapentin 300 mg capsule 300 mg PO BEDTIME 10/08/23 04/07/24 Previous Rx's ?Medication ?Instructions ?Recorded lisinopril 30 mg tablet 30 mg PO DAILY #90 tabs 07/11/24 cephalexin 500 mg capsule 500 mg PO QID #28 caps 08/07/24 Allergies Allergy/AdvReac Type Severity Reaction Status Date / Time No Known Allergies Allergy Verified 08/07/24 06:40 [No Known Allergies*] Review of Systems Review of Systems: As per HPI Yes all other systems are reviewed and are negative Constitutional: Constitutional: Reports as per HPI [facility] Past Medical History Medical History (Updated 08/07/24 @ 10:13 by Glo Edwards NP) Hypertension Family History Family History Son Colon cancer Brother History of open heart surgery Social History Social History Alcohol intake: former Year quit: 2010 Patient Tobacco Use Status: Never used Tobacco Advance Directives: No Advance Directives Information Provided: Yes Do you have a plan to hurt others: No Plan Physical Exam ED Vital Signs: Vital Signs - 24 hr 08/07/24 06:37 08/07/24 08:00 Temperature 97.9 F 97.8 F Pulse Rate 80 69 Respiratory Rate 18 19 Blood Pressure 131/69 152/72 H Pulse Oximetry 97 97 Oxygen Delivery Method Room Air Room Air BMI result Body Mass Index 32.3 Vital signs have been reviewed and appear to be correct. Blood pressure normal. Heart rate normal. Respiratory rate normal. Temperature normal. Oxygen saturation normal. Const General: cooperative, healthy appearing and no acute distress Orientation/consciousness: oriented to person, oriented to place, oriented to time and patient oriented x3 Limitations: no limitations HENMT Head: Yes normocephalic and Yes atraumatic Ears: external ears normal General nose exam: Normal external nose present Face and sinus: Yes face symmetric Mouth: oropharynx normal and moist mucous membranes Throat: Yes uvula midline Eyes Pupils: Equal, round and reactive pupils present Neck Neck: Yes normal visual inspection and Yes supple Resp Effort & Inspection: normal respiratory effort and able to speak in complete sentences Auscultation: clear to auscultation bilaterally Cardio Rate: regular rate Rhythm: regular rhythm Heart sounds: S1 normal heart sound present and S2 normal heart sound present GI Palpation (GI): Soft to palpation and nontender Auscultation: normoactive bowel sounds General: Yes no CVA tenderness Back/Spine/Pelvis Back: no CVA tenderness Skin General skin exam: elasticity normal and turgor normal Neuro General: oriented to person, oriented to place, oriented to time, patient oriented x3, moves all extremities, no focal motor deficits and CN's II-XI intact bilaterally Cranial nerves: Yes Equal, round and reactive pupils present Cognition (Neuro): normal cognition Extrem Other: General: Yes full ROM, Yes no pedal edema and Yes no calf tenderness Left upper extremity: elbow/forearm Details: tenderness Location: of the lateral epicondyle, swelling Location: of the lateral epicondyle, normal ROM, distal pulses intact and other (3cm diameter area of erythema to lateral elbow with central pustule-see photo) Psych Mental Status: mental status grossly normal Affect: normal affect Thought process: Normal thought process present Medications Administered Discontinued Medications Generic Name Dose Route Start Last Admin Trade Name Freq PRN Reason Stop Dose Admin Diphtheria/Tetanus/Acell Pertussis 0.5 ml 08/07/24 08:46 08/07/24 09:27 Diphth,Pertus(Acell),Tet Adult 0.5 Ml Syringe IM 08/07/24 08:47 0.5 ml .ONCE ONE Administration Medical Decision Making Medical Decision Making [facility] Narrative: Patient is a 79-year-old male presenting to the emergency department with complaint of pain and swelling, redness to left elbow. On exam patient is awake, A+Ox3, VS WNL, afebrile, normal neurological exam without focal deficits, physical exam findings as above. Given reported symptoms and physical exam findings, initial differential includes but is not limited to cellulitis, bursitis. Do not suspect septic joint as patient has full ROM, is afebrile. Labs notable for no leuokocytosis, elevated CRP, normal ESR. X-ray notable for no evidence of foreign body or gas. My interpretation is in agreement with the radiologist's interpretation. Feel patient can be discharged home on PO antibiotics, denies known history of MRSA, will treat with cephalexin. Erythema outlined in the ED. Return precautions discussed at bedside. Patient verbalized understanding of and agreement with plan. Differential Diagnosis Differential Diagnoses: The differential diagnosis associated with the presentation includes As per [facility] Admission/Observation Consideration of admission/observation: Escalation of care including admission/observation considered Patient would have been admitted to the hospital had their work up had any findings where hospital admission was appropriate and their clinical presentation warranted hospital admission. Lab Data [facility] Lab Attestation statement: I reviewed the patient's lab results. as per [facility] 08/07/24 08:56 08/07/24 08:56 Labs: Lab Results 08/07/24 Range/Units 08:56 WBC 7.4 (4.8-10.8) X10*3/uL RBC 5.31 (4.60-5.80) X10*6/uL Hgb 16.5 (14.0-18.0) g/dl Hct 47.8 (42.0-52.0) % MCV 90.0 (80.0-98.0) fL MCH 31.1 (27.0-33.0) pg MCHC 34.5 (31.0-36.0) g/dl RDW 13.7 (11.0-16.0) % Plt Count 178 (160-400) X10*3/uL MPV 8.7 L (9.4-12.4) fL Immature Gran % (Auto) 0.1 (0.0-0.4) % Neut % (Auto) 61.1 (45-73) % Lymph % (Auto) 28.1 (20-40) % Forest % (Auto) 7.8 (2-11) % Eos % (Auto) 2.4 (0-4) % Baso % (Auto) 0.5 (0-2) % Lymph # (Auto) 2.1 (1.2-4.9) X10*3/uL Forest # (Auto) 0.6 (0.1-1.2) X10*3/uL Eos # (Auto) 0.2 (0.0-0.4) X10*3/uL Baso # (Auto) 0.0 (0.0-0.2) X10*3/uL Abs Immat Gran (auto) 0.01 (0.00-0.03) X10*3/uL Absolute Neuts (auto) 4.5 (2.0-8.3) x10*3/uL Absolute Nucleated RBC 0.000 (0.0-0.012) X10*3/uL Nucleated RBC % (auto) 0.0 (0.0-0.2) /100WBC ESR 15 (0-15) MM/HR Sodium 141 (135-145) mmol/L Potassium 3.8 (3.3-5.1) mmol/L Chloride 108 (96-108) mmol/L Carbon Dioxide 26 (22-29) mmol/L Anion Gap 11 L (12-20) BUN 13 (9-16) mg/dL Creatinine 1.11 (0.5-1.4) mg/dL Estim Creat Clear Calc 65.6 Estimated GFR > 60 Random Glucose 91 (60-115) mg/dL Calcium 9.6 (8.4-10.2) mg/dL C-Reactive Protein 3.51 H (< or = 0.50) mg/dL Independent Interpretation I performed an independent interpretation of an: Plain X-Ray Interpretation: No evidence of FB or gas left elbow XR. Radiology Impression Discussion of test interpretation with radiology: I have reviewed the radiologist's reading. Radiologist Impression: 4 view left elbow Comparison: None Findings: Bones intact. No dislocations. Mild degenerative changes throughout the elbow. No joint effusion. No radiopaque foreign body. IMPRESSION: Mild degenerative changes. No fracture, malalignment or suspicious bone lesion. No soft tissue gas. External Record Review External record reviewed: Inpatient record, Office record and Outpatient record Prescription Management I considered prescription management with: Antibiotic Discharge Plan Discharge Clinical Impression: Cellulitis of left elbow Patient Disposition: Home, Self-Care Instructions: Cellulitis (ED) Additional Instructions: You have been evaluated in the emergency department today for skin infection, also known as cellulitis. If the area of inflammation was outlined today in the ER, please return to the ER immediately if the area of redness increases beyond the border. Please take your prescribed antibiotics as directed for the full course of the medication. You can use Tylenol or ibuprofen per package instructions every 6 hours as needed for pain. If necessary, you can alternate these medications so that you can take one medication every 3 hours. For instance, at noon take ibuprofen, then at 3:00 p.m. take Tylenol, then at 6:00 p.m. take ibuprofen. Please schedule an appointment for follow-up with your primary care physician as soon as possible. Return to the emergency department if you experience recurrent vomiting, fevers greater than 100.4? F, increasing area of redness, warmth around the area, foul-smelling discharge from the area, increased tenderness around the area, or any other concerning symptoms. Prescriptions: New cephalexin 500 mg capsule 500 mg PO QID Qty: 28 0RF No Action lisinopril 30 mg tablet 30 mg PO DAILY Qty: 90 3RF allopurinol 300 mg tablet 300 mg PO DAILY amlodipine 10 mg tablet 10 mg PO DAILY gabapentin 300 mg capsule 300 mg PO BEDTIME Print Language: Jordanian
[2024-08-07 09:00] LABS: MANUAL DIFF FLAG NO
[2024-08-07 09:02] LABS: Basophils Percent Auto 0.5 % (0-2); Eosinophils Absolute Auto 0.2 X10*3/uL (0.0-0.4); Eosinophils Percent Auto 2.4 % (0-4); Hematocrit 47.8 % (42.0-52.0); Hemoglobin 16.5 g/dl (14.0-18.0); Imm Gran Abs Auto 0.01 X10*3/uL (0.00-0.03); Imm Gran Pct Auto 0.1 % (0.0-0.4); Lymphocytes Absolute Auto 2.1 X10*3/uL (1.2-4.9); Lymphocytes Percent Auto 28.1 % (20-40); Mean Corpuscular HGB Conc 34.5 g/dl (31.0-36.0); Mean Corpuscular Hemoglobin 31.1 pg (27.0-33.0); Mean Platelet Volume 8.7 fL (9.4-12.4); Monocytes Absolute Auto 0.6 X10*3/uL (0.1-1.2); Monocytes Percent Auto 7.8 % (2-11); Neutrophils Absolute Auto 4.5 x10*3/uL (2.0-8.3); Neutrophils Percent Auto 61.1 % (45-73); Platelet Count 178 X10*3/uL (160-400); Red Blood Count 5.31 X10*6/uL (4.60-5.80); Red Cell Distribution Width 13.7 % (11.0-16.0); White Blood Count 7.4 X10*3/uL (4.8-10.8)
[2024-08-07 09:20] LABS: Anion Gap 11 (12-20); Blood Urea Nitrogen 13 mg/dL (9-16); C Reactive Protein 3.51 mg/dL (< or = 0.50); Calcium 9.6 mg/dL (8.4-10.2); Carbon Dioxide 26 mmol/L (22-29); Chloride 108 mmol/L (96-108); Creatinine Clr Calc Pharmacy 65.6; Estimated Glomerular Filt Rate > 60; Glucose Random 91 mg/dL (60-115); Potassium 3.8 mmol/L (3.3-5.1); Sodium 141 mmol/L (135-145)
[2024-08-07] MEDS: Diphth,Pertus(ACell),Tet Adult 0.5 ML SYRINGE IM (09:27)
[2024-08-07 09:43] LABS: Erythrocyte Sedimentation Rate 15 MM/HR (0-15)
[2024-08-07 10:22] VITALS: BP 136/83; PULSE 62; RESP 19; TEMP 36.3; O2SAT 96
[2024-08-07 10:29] VITALS: BP 136/83; PULSE 62; RESP 19; TEMP 36.3; O2SAT 96
== END 2024-08-07 10:32 | disposition home or self-care (01) ==
PROVIDERS: Registered Nurse Emergency; Emergency Provider Emergency Medicine; PCP Internal Medicine
DX: L03.114 Cellulitis of left upper limb (principal); M25.522 Pain in left elbow; S50.312A Abrasion of left elbow, initial encounter; W22.8XXA Striking against or struck by other objects, initial encounter; Y93.89 Activity, other specified; Y92.9 Unspecified place or not applicable; Y99.9 Unspecified external cause status; Z23 Encounter for immunization
CPT/HCPCS: 36415; 73070; 80048; 85025; 85652; 86140; 90471; 90715; 99283; 99284

== ENCOUNTER → 2024-08-07 08:41 | Outpatient (BNV) | payer MEDICARE, MEDICAID, SELFPAY | PROVIDERS: Emergency Provider Emergency Medicine; PCP Internal Medicine; Visit Provider Radiology Vascular & Interventional Radiology | DX: M19.022 Primary osteoarthritis, left elbow (principal) | CPT/HCPCS: 73070 ==

== ENCOUNTER 2024-10-03 09:35 | Outpatient (AMB) | payer MEDICARE, SELFPAY ==
--- NOTE | 2024-10-03 09:36 | A.OFFPC_ITS ---
Vital Signs 10/03/24 09:37 10/03/24 09:39 Height 5 ft 10 in Weight 225 lb BMI 32.3 BP 110/46 L Blood Pressure Location Lt brachial Position Sitting Respiration 18 Pulse 64 Pulse Source Pulse Oximeter Temp 97.8 F Temp Source Temporal Artery Scan Pulse Oximetry (%) 96 Oxygen Delivery Method Room Air Intake Visit Reasons: 4 month follow up John ulloa Office Analyst Required: No Accompanied by: Self / Same As Patient Allergies No Known Allergies (No Known Allergies*) Allergy (Verified 10/03/24 09:57) Medication List - Last Reconciled 10/03/24 by Florentin Obrien MD allopurinol 300 mg PO DAILY amlodipine 10 mg PO DAILY gabapentin 300 mg PO BEDTIME lisinopril 30 mg PO DAILY loratadine (Claritin) 10 mg PO DAILY Tobacco use date assessed: 10/03/24 HPI 4 month follow up John pt HPI Details Wishing to establish his care here and is transferring from Dr Lopez [facility] Medical History (Updated 10/03/24 @ 09:59 by Florentin Obrien MD) Mobitz type 1 second degree atrioventricular block Aortic valve calcification Essential hypertension Hypertension Family History Son Colon cancer Brother History of open heart surgery Social History Alcohol intake: former Year quit: 2010 Patient Tobacco Use Status: Never used Tobacco e-Cigarette/Vaping Use: Never Used Questionnaire AUDIT C Alcohol Use Questionnaire (AUDIT-C) 1. How often do you have a drink containing alcohol?: Never Total Score: 0 Physical exam (Primary Care) Vital Signs: Last Vital Signs Temp 97.8 F 10/03/24 09:39 Pulse 64 10/03/24 09:39 Resp 18 10/03/24 09:39 BP 110/46 L 10/03/24 09:39 Pulse Ox 96 10/03/24 09:39 Oxygen Delivery Method Room Air 10/03/24 09:39 Care Plan Goal for BP management: BP is in range BMI result Body Mass Index 32.3 Tobacco/Smoking Status: Tobacco use Status Tobacco use date assessed 10/03/24 10/03/24 09:41 Patient Tobacco Use Status Never used Tobacco 10/03/24 09:41 e-Cigarette/Vaping Use Never Used 10/03/24 09:41 Coding Level of Care Code New Pt Level 4 (24507) Complex EM visit Add On G2211 Diagnoses Essential hypertension I10 Aortic valve calcification I35.9 Mobitz type 1 second degree atrioventricular block I44.1 Assessment & Plan Assessment & Plan (1) Essential hypertension: Code(s): I10 - Essential (primary) hypertension Category: Medical Plan: BP in range. BW revd. CRP was elevated in the past, will repeat the numbers again (2) Aortic valve calcification: Code(s): I35.9 - Nonrheumatic aortic valve disorder, unspecified Category: Medical (3) Mobitz type 1 second degree atrioventricular block: Code(s): I44.1 - Atrioventricular block, second degree Category: Medical Plan History of Present Illness - The patient is a 79-year-old male presenting with concerns about low blood pressure and heart murmur. - Hypotension: The patient reported a recent blood pressure reading of 110/40 mmHg, which is lower than his usual 160/80 mmHg. - Heart murmur: The patient has a history of a heart murmur since , but recent evaluations by Dr. Lopez suggested a different cardiac issue, leading to a referral to a glazier stained glass for further assessment. - Cystic skin lesions: The patient experiences recurrent cystic lesions on the skin, including the ear and face, which enlarge and eventually drain spontaneously. - Elbow infection: The patient had an elbow infection with elevated inflammatory markers, specifically C-reactive protein, noted during blood work in July. 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 He engages in regular exercise by cycling on a nearby bike path. 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 - Substance Use: Abstains from alcohol for 12 years and does not smoke. - Exercise: Regularly rides a bicycle on a nearby bike path. Review of Systems - Cardiovascular: Reports low blood pressure. Denies chest pain or palpitations. - Dermatological: Reports recurrent cystic lesions on the skin. Physical Exam General: Cooperative and healthy appearing Nutritional Appearance: Well nourished Orientation/consciousness: Patient oriented x3 Limitations: No limitations Head: Normal to inspection General: Appearance normal, both eyes and all related structures Neck: Normal visual inspection Chest: Normal palpation of entire chest wall Respiratory: Normal respiratory effort Neurology: Patient oriented x3 Results - Labs: Elevated C-reactive protein noted in previous blood work. Plan 1. Hypotension - Plan to monitor blood pressure closely and evaluate for any underlying causes. 2. Heart Murmur - Referral to glazier stained glass for further evaluation and potential Holter monitoring. 3. Cystic Skin Lesions - Monitor lesions for changes and manage symptomatically as needed. 4. Elbow Infection - Repeat C-reactive protein test to assess current inflammatory status. Discussion Notes I discussed with the patient the importance of monitoring his blood pressure and the potential need for further cardiac evaluation due to the heart murmur. We also talked about the management of his skin lesions and the need to repeat the C-reactive protein test to monitor inflammation. Follow-up care was arranged, and the patient was advised to continue his current medications. Patient Instructions - Continue taking all prescribed medications, including blood pressure and gout medications. - Monitor blood pressure regularly and report any significant changes. - Follow up with the glazier stained glass as scheduled for further evaluation of the heart murmur. - Observe skin lesions for any changes and report if they worsen. - Return for follow-up in three months or sooner if symptoms change. Orders: Orders C Reactive Protein Today I10 - Essential (primary) hypertension
[2024-10-03 09:37] VITALS: BMI 32.3
[2024-10-03 09:39] VITALS: BP 110/46; PULSE 64; RESP 18; TEMP 36.6; O2SAT 96
--- OUTSIDE RECORDS SUMMARY | 2024-10-03 10:08 | XMS_ITS | Patient Health Record ---
[facility] Address [address] [place] [address] Care Team Providers Care Substance Abuse Prevention Coordinator Name Role Phone John FAUSTIN, Robby Primary Care Provider UnavailTanya Lyn Unavailable [phone] Allergies Allergen (clinical drug ingredient) Drug/Non Drug Allergy documented on EMR Reaction Allergy Type Onset Date Status Pollen Pollen Unknown Allergy Active Reason For Referral No Information Medications Medication SIG (Take, Route, Frequency, Duration) Notes Start Date End Date Status amLODIPine Besylate 10 MG 1 tablet Orall y Once a day; Duration: 30 day(s) Active Cephalexin 500 MG 1 capsule Orally ligia ry 12 hrs; Duration: 7 days Active Cephalexin 500 MG 1 capsule Orally ligia ry 12 hrs; Duration: 3 days Active Metoprolol Tartrate 25 MG 1 tablet with food Orally Twice a day; Duration: 30 day(s) Active Lisinopril 20 MG 1 tablet Orally Once a day; Duration: 30 day(s) Active Allopurinol 300 MG 1 tablet Orally Once a day; Duration: 30 day(s) Active Gabapentin 300 MG 1 capsule Orally Onc e a day; Duration: 30 day(s) Active Social History Tobacco Use: [...] Medicare [employer] [address] [place] [address] [id number] Miguel Charles Self - patient is the insured Medical (General) History Medical History History ICD Code Cataracts Gout High blood pressure Poor circulation Chicken pox Surgical History Surgery Date(Month/Year)
== END 2024-10-03 09:53 | disposition home or self-care (01) ==
LOC: HO.HMCHD 09:35
PROVIDERS: PCP Family Medicine; Visit Provider Internal Medicine
DX: I10 Essential (primary) hypertension (principal); I35.9 Nonrheumatic aortic valve disorder, unspecified; I44.1 Atrioventricular block, second degree

== ENCOUNTER → 2024-10-03 10:22 | Outpatient (REF) | payer MEDICARE, MEDICAID, SELFPAY ==
--- NOTE | 2024-10-03 10:24 | HM_ITS ---
* Total monitoring time 2 days and 19 hours. * Underlying rhythm is sinus with an average rate of 68/Min. * Supraventricular ectopy noted with a burden of 1.45%. * Rare ventricular ectopy. * No significant pauses or high-grade AV blocks. * No patient markers or diary events. MTDD
== END ==
LOC: HO.CARD 10:22
PROVIDERS: PCP Internal Medicine; Visit Provider Internal Medicine
DX: Z76.89 Persons encountering health services in other specified circumstances (principal); I44.1 Atrioventricular block, second degree; I10 Essential (primary) hypertension; I35.9 Nonrheumatic aortic valve disorder, unspecified; L98.8 Other specified disorders of the skin and subcutaneous tissue; R01.1 Cardiac murmur, unspecified
CPT/HCPCS: 93242; 99202

== ENCOUNTER → 2024-10-03 10:24 | Outpatient (BNV) | payer MEDICARE, MEDICAID, SELFPAY | PROVIDERS: PCP Internal Medicine; Visit Provider Internal Medicine | DX: I47.10 Supraventricular tachycardia, unspecified (principal); I49.3 Ventricular premature depolarization | CPT/HCPCS: 93244 ==

== ENCOUNTER 2024-11-08 12:52 | Outpatient (AMB) | payer MEDICARE, MEDICAID, SELFPAY ==
--- NOTE | 2024-11-08 12:58 | A.OFFVIS_ITS ---
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 He had Mobitz type 1 heart block and beta-blockers were previously stopped. Otherwise, he is fine for the most part. No clear-cut symptoms. No activity limitations. No angina or any other concerns. [facility] Medical History Mobitz type 1 second degree atrioventricular block Aortic valve calcification Essential hypertension Hypertension Family History Son Colon cancer Brother History of open heart surgery Social History Alcohol intake: former Year quit: 2010 Patient Tobacco Use Status: Never used Tobacco e-Cigarette/Vaping Use: Never Used Review of Systems Const Denies chills, Denies fatigue, Denies fever(s), Denies frequent falls, Denies weakness, Denies weight gain and Denies weight loss ENT Denies dizziness Card Denies chest pain, Denies leg edema, Denies lightheadedness, Denies palpitations, Denies dyspnea and Denies dyspnea on exertion Resp Denies cough, Denies dyspnea and Denies dyspnea on exertion GI Denies hematochezia Musc Denies abnormal gait, Denies muscle weakness, Denies numbness, Denies radiating pain into limb and Denies tingling Neuro Denies abnormal gait, Denies dizziness, Denies frequent falls, Denies numbness, Denies tingling and Denies weakness Endo Denies fatigue and Denies palpitations Physical Exam Vital Signs: Last Vital Signs Pulse 64 11/08/24 12:59 BP 130/70 11/08/24 12:59 BMI result Body Mass Index 32.3 Const General: comfortable and no acute distress Orientation/consciousness: patient oriented x3 HEENT Other: Unremarkable Head: Yes normal to inspection Neck Neck: Yes normal visual inspection Chest Chest palpation & inspection: normal inspection of the chest Resp Auscultation: clear to auscultation bilaterally Cardio Palpation: normal PMI Heart sounds: S1 normal heart sound present, S2 normal heart sound present, no gallops, Murmur heart sound present systolic I/ and no rubs GI Palpation (GI): Soft to palpation Back/Spine/Pelvis Other: unremarkable Skin General skin exam: no rashes or lesions noted Neuro General: patient oriented x3 Extrem General: Yes normal to inspection Psych Mental Status: mental status grossly normal Office Procedures EKG Details: EKG with underlying sinus rhythm at 64/Min; OK prolongation to 236 milliseconds; cannot exclude old anterior infarct; [place] [id number], Complete Assessment & Plan Assessment & Plan (1) Asymmetric septal hypertrophy: Code(s): I51.7 - Cardiomegaly Category: Medical (2) Aortic valve calcification: Code(s): I35.9 - Nonrheumatic aortic valve disorder, unspecified Category: Medical (3) Sinus bradycardia: Code(s): R00.1 - Bradycardia, unspecified Category: Medical (4) Mobitz type 1 second degree atrioventricular block: Code(s): I44.1 - Atrioventricular block, second degree Category: Medical (5) Essential hypertension: Code(s): I10 - Essential (primary) hypertension Category: Medical Plan Cardiac studies reviewed. EKG with sinus bradycardia and prolonged OK. Initial Holter with underlying sinus rhythm, frequent sinus bradycardia, occasional Mobitz type 1 second-degree heart block with rare PACs/PVCs. In the recent repeat Holter, sinus rhythm with an average rate of 68/Min with frequent PACs and a burden of 1.45%. In the echocardiogram, LVEF is 59%. Mild septal hypertrophy. Low normal RV systolic function. Mild aortic valve calcification. With regard to the conduction system disease as well as supraventricular ectopy, he needs screening for obstructive sleep apnea. Order home sleep study. He agrees. He has been taken off beta-blockers. Blood pressure seems to be stable on the current regimen of amlodipine/lisinopril. With regard to the septal hypertrophy itself, no specific significance and related to the hypertension itself. With regard to the aortic valve calcification, again no specific implications for now but there is a higher chance of developing calcific aortic stenosis in the future. Follow up echocardiogram as needed. Follow up in one year. Discussion Notes During the visit, we discussed the patient's cardiovascular health, noting improved blood pressure control with current medication. We also addressed the issue of bradycardia and the potential for sleep apnea, recommending a sleep study to further evaluate any underlying conditions that may affect heart rhythm. Patient was informed and verbally consented to the use of an ambient scribe for clinic note documentation during this visit. Orders: Orders RT home sleep study Today G47.33 - Obstructive sleep apnea (adult) (pediatric) Patient Instructions: - Continue current hypertension medication regimen. - Monitor for any symptoms of bradycardia, such as dizziness or fatigue, and report them. - Undergo a sleep study to evaluate for sleep apnea. Coding Level of Care Code Est Pt Level 4 (37688) Complex EM visit Add On G2211 Diagnoses Asymmetric septal hypertrophy I51.7 Aortic valve calcification I35.9 Sinus bradycardia R00.1 Mobitz type 1 second degree atrioventricular block I44.1 Essential hypertension I10 CPT Codes EKG - CPT: 67343-[id number], Complete ([id number])
[2024-11-08 12:59] VITALS: BP 130/70; PULSE 64; BMI 32.3
--- OUTSIDE RECORDS SUMMARY | 2024-11-08 15:13 | XMS_ITS | Patient Health Record ---
[facility] Organization [facility] Address [address] [place] [address] Care Team Providers Care Irrigationist Name Role Phone John FAUSTIN, Robby Primary Care Provider UnavailTanya Lyn Unavailable [phone] Allergies Allergen (clinical drug ingredient) Drug/Non Drug [...] Medicare National [employer] [address] [place] [address] [phone] [id number] Miguel Charles Self - patient is the insured Medical (General) History Medical History History ICD Code Cataracts Gout High blood pressure Poor circulation Chicken pox Surgical History Surgery Date(Month/Year)
== END 2024-11-08 13:16 | disposition home or self-care (01) ==
PROVIDERS: PCP Internal Medicine; Visit Provider Internal Medicine
DX: I51.7 Cardiomegaly (principal); I35.9 Nonrheumatic aortic valve disorder, unspecified; R00.1 Bradycardia, unspecified; I44.1 Atrioventricular block, second degree; I10 Essential (primary) hypertension
CPT/HCPCS: 93010; 99214; G2211

== ENCOUNTER → 2024-11-08 12:52 | Outpatient (BNVA) | payer MEDICARE, MEDICAID, SELFPAY | PROVIDERS: PCP Internal Medicine; Visit Provider Internal Medicine | DX: I51.7 Cardiomegaly (principal); I35.9 Nonrheumatic aortic valve disorder, unspecified; R00.1 Bradycardia, unspecified; I44.1 Atrioventricular block, second degree; I10 Essential (primary) hypertension | CPT/HCPCS: 93005; 99212 ==

== ENCOUNTER 2025-01-09 08:51 | Outpatient (AMB) | payer MEDICARE, MEDICAID, SELFPAY ==
[2025-01-09 08:19] VITALS: BP 152/80; PULSE 65; TEMP 37.1; O2SAT 95; BMI 32.9
--- NOTE | 2025-01-09 08:19 | A.OFFPC_ITS ---
Vital Signs 01/09/25 08:19 Height 5 ft 10 in Weight 229 lb 6 oz BMI 32.9 BP 152/80 H Blood Pressure Location Lt brachial Position Sitting Pulse 65 Pulse Source Pulse Oximeter Temp 98.8 F Temp Source Temporal Artery Scan Pulse Oximetry (%) 95 Oxygen Delivery Method Room Air Intake Visit Reasons: 3 Month F/U from Dr Moreno Criminal Defense Lawyer Required: No Accompanied by: Self / Same As Patient Allergies No Known Allergies (No Known Allergies*) Allergy (Verified 01/09/25 08:19) Tobacco use date assessed: 01/09/25 Fall risk assessment: No Falls in past year Last assessed Fall Risk: 01/09/25 Dental Screening Dental Screen Date: 01/09/25 Did you have a dental visit in the last 12 months?: No Did you have a dental problem in the last 6 months where you did not have access to dental care?: No HPI HPI Comments History of Present Illness Details The patient is a 79-year-old male presenting for management of chronic conditions, reporting generalized aches and pains for a while. He identifies his most significant issue as peripheral neuropathy in his legs, characterized by numbness rather than pain. This condition makes it difficult for him to walk and drive, as he cannot feel his feet on the pedals. For his hypertension, the patient is currently on amlodipine 10 mg and lisinopril 30 mg. His home blood pressure readings, taken once a week before his medication, are high at 170/165 mmHg, and his reading today was in the 150s, indicating his blood pressure is not well-controlled. He notes that his blood pressure was in the 130s during a recent visit with his sample supervisor. His cardiac history includes a calcified aortic valve and an enlarged ventricular septum. The patient takes allopurinol 300 mg for gout. He reports experiencing shortness of breath. He is retired from [employer] since 2011 or 2012 and has gained significant weight since then. For physical activity, he rides his bike almost daily but is otherwise not very active. Medical History: - Peripheral neuropathy - Hypertension - Calcified aortic valve - Ventricular septal hypertrophy - Gout - Shortness of breath Medications: - Gabapentin 300 mg at night for periphe ral neuropathy - Amlodipine 10 mg for hypertension - Lisinopril 30 mg for hypertension - Allopurinol 300 mg for gout Diagnostic Results: - Past cardiac evaluation revealed a karen cified aortic valve and enlarged ventricular septum. - Home blood pressure readings are 165-1 70 mmHg. Social History: - Alcohol use: Patient denies drinking a lcohol. - Employment: Patient is retired from [employer], a job he held for about 12 years and stopped around 2011 or 2012. - Exercise: He rides a bike on a local [place] almost every day but reports he is not very active otherwise. - Weight management: Reports significant weight gain since mcc. - Functional status: Reports difficulty with walking and driving due to numbness in his feet. [facility] Medical History (Updated 01/09/25 @ 09:35 by Guido Castillo MD) Dyspnea Neuropathy Mobitz type 1 second degree atrioventricular block Aortic valve calcification Essential hypertension Hypertension Family History (Updated 01/09/25 @ 09:04 by Emeli Ortzi MA) Son Colon cancer Brother History of open heart surgery Mother No problems noted. Father No problems noted. Social History Housing: Apartment Alcohol intake: former Year quit: 2010 Patient Tobacco Use Status: Never used Tobacco e-Cigarette/Vaping Use: Never Used service: No Current occupational status: retired Cognitive needs: No Hearing needs: No Vision needs: Yes (Reading galsses) Questionnaire PHQ-9 Over the last 2 weeks, how often have you been bothered by any of the following problems? 1. Little interest or pleasure in doing things: not at all 2. Feeling down, depressed, or hopeless: not at all 3. Trouble falling or staying asleep, or sleeping too much: not at all 4. Feeling tired or having little energy: not at all 5. Poor appetite or overeating: not at all 6. Feeling bad about yourself - or that you are a failure or have let yourself or your family down: not at all 7. Trouble concentrating on things, such as reading the newspaper or watching television: not at all 8. Moving or speaking so slowly that other people could have noticed. Or the opposite - being so fidgety or restless that you have been moving around a lot more than usual: not at all 9. Thoughts that you would be better off or of hurting yourself in some way: not at all Total score: 0 Depression Screening Interpretation: Negative Depression Screening Done: Yes Source: Developed by Drs. Zaid Strange, Laureen Marques, Geoffrey Abdi and colleagues, with an educational laverne from [employer]. Thrive Questionnaire Date Thrive assessed: 01/09/25 I am a: Patient What is your living situation today?: I have a steady place to live Within the past 12 months, did the food you bought not last and you didn't have the money to get more?: Never true Within the past 12 months, did you worry whether your food would run out before you got money to buy more?: Never true Do you have trouble paying for medicines?: No Do you have trouble getting transportation to medical appointments?: No Do you have trouble paying your heating and electricity bill?: No Do you have trouble taking care of your child, family member or friend?: No Do you have trouble with day-to-day activities such as bathing, preparing meals, shopping, managing finances, etc.?: No Are you currently unemployed and looking for a job?: No Are you interested in more education?: No THRIVE Score: 0 AUDIT C Alcohol Use Questionnaire (AUDIT-C) 1. How often do you have a drink containing alcohol?: Never 3. How often do you have six or more drinks on one occasion?: Never Total Score: 0 Score Reviewed/Action Taken: Yes LESLEY-7 AMB Questionnaire LESLEY-7 Date LESLEY - 7 assessed: 01/09/25 Feeling nervous, anxious, or on edge: 0 = Not at all Not being able to stop or control worryin = Not at all Worrying too much about different things: 0 = Not at all Trouble relaxin = Not at all Being so restless that it is hard to sit still: 0 = Not at all Becoming easily annoyed or irritable: 0 = Not at all Feeling afraid as if something awful might happen: 0 = Not at all Total LESLEY-7 score (0-4 normal; 5-9 mild; 10-14 moderate; 15-21 severe): 0 Source: Developed by Drs. Zaid Strange, Laureen Marques, Geoffrey Abdi and colleagues, with an educational laverne from [employer]. Review of Systems Narrative - Constitutional: Reports generalized aches and pains for a while. - Cardiovascular: Denies chest pain. - Respiratory: Reports shortness of breath. - Gastrointestinal: Denies nausea and vomiting. - Neurological: Reports numbness in his legs, making it difficult to walk and drive. All systems reviewed & are unremarkable except as reviewed in HPI and above Physical exam (Primary Care) Vital Signs: Last Vital Signs Temp 98.8 F 01/09/25 08:19 Pulse 65 01/09/25 08:19 BP 152/80 H 01/09/25 08:19 Pulse Ox 95 01/09/25 08:19 Oxygen Delivery Method Room Air 01/09/25 08:19 BMI result Body Mass Index 32.9 Tobacco/Smoking Status: Tobacco use Status Tobacco use date assessed 01/09/25 01/09/25 08:21 Patient Tobacco Use Status Never used Tobacco 01/09/25 08:21 e-Cigarette/Vaping Use Never Used 01/09/25 08:21 PHQ-9: PHQ-9 Score PHQ-9: Total score 0 01/09/25 09:04 Depression Screening Interpretation: Negative Thrive Assessment: Date of Thrive Assessment Date Thrive assessed 01/09/25 01/09/25 08:21 Narrative General: +Alert and oriented, Well nourished, No acute distress. Eye: Pupils are equal, round and reactive to light, Intact accommodation, Extraocular movements are intact, Normal conjunctiva, Vision unchanged. HENT: Normocephalic, Atraumatic, Tympanic membranes are clear, Normal hearing, Oral mucosa is moist, No pharyngeal erythema, Ear canals patent. Respiratory: Lungs CTA bilaterally, No wheeze, Respirations are non-labored, Reports of shortness of breath. Cardiovascular: Regular rate, Regular rhythm, S1 auscultated, S2 auscultated, No murmur, Good pulses equal in all extremities, Normal peripheral perfusion, No edema, Blood pressure elevated in the 150s. Gastrointestinal: Soft, Non-tender, Non-distended, Normal bowel sounds, No organomegaly. Musculoskeletal: Normal range of motion, Normal strength, No tenderness, No swelling, No deformity, Normal gait, Reports difficulty walking due to neuropathy. Integumentary: Warm, Dry, [place], Intact. Neurologic: Alert, Oriented, Normal sensory, Normal motor function, No focal defects, Cranial Nerves II-XII are grossly intact, Normal deep tendon reflexes, Reports numbness and discomfort in legs due to neuropathy. Psychiatric: Cooperative, Appropriate mood & affect, Normal judgment. Coding Level of Care Code Est Pt Level 4 (33889) Complex EM visit Add On G2211 Diagnoses Neuropathy G62.9 Essential hypertension I10 Asymmetric septal hypertrophy I51.7 Dyspnea, unspecified type R06.00 Dyspnea type: unspecified Assessment & Plan Assessment & Plan (1) Neuropathy: Comment: - The patient's symptoms of numbness in his feet are significantly impacting his ability to walk and drive. - His current regimen of gabapentin 300 mg at night is providing insufficient relief. - To improve daytime symptoms, I will add gabapentin 100 mg in the morning and 100 mg in the afternoon, while he continues the 300 mg dose at night. Code(s): G62.9 - Polyneuropathy, unspecified Category: Medical (2) Essential hypertension: Comment: - The patient's blood pressure is not controlled on amlodipine and lisinopril, with home readings of 165-170 mmHg and a reading in the 150s today. - Improved control is critical to prevent progression of his known calcified aortic valve and septal hypertrophy. - The patient will monitor his blood pressure three times a week for four weeks, checking it one hour after taking his medications, and maintain a log. - I will send a 90-day supply for his medications. - We will follow up in four weeks to review the blood pressure log and adjust medications if they remain elevated. Code(s): I10 - Essential (primary) hypertension Category: Medical (3) Asymmetric septal hypertrophy: Comment: - Seen on recent ECHO & Result reviewed Code(s): I51.7 - Cardiomegaly Category: Medical (4) Dyspnea: Comment: - The patient endorses shortness of breath and was advised by his sample supervisor to get a sleep study, which I have reinforced. Code(s): R06.00 - Dyspnea, unspecified Category: Medical Qualifiers: Dyspnea type: unspecified Qualified Code(s): R06.00 - Dyspnea, unspecified Plan: Health Maintenance: - Discussed the importance of better blood pressure control to prevent further cardiac damage, given his history of a calcified aortic valve and enlarged septum. - Advised patient to increase physical activity to manage post-mcc weight gain and improve overall health, suggesting activities like going to the gym or swimming. - Reinforced sample supervisor's recommendation for the patient to undergo a sleep study. Patient was informed and verbally consented to the use of an ambient scribe for clinic note documentation during this visit. Plan I explained to the patient that his neuropathy is caused by damaged nerves that fire abnormally, and that gabapentin works by slowing down this firing to provide relief from symptoms like numbness. I proposed adding a low dose of gabapentin in the morning and afternoon to address his daytime symptoms without causing excessive grogginess, in addition to his current nighttime dose. We discussed his uncontrolled hypertension and the importance of getting it under control to prevent further damage to his calcified aortic valve and enlarged ventricular septum. I provided instructions for him to monitor his blood pressure at home for the next four weeks, specifically one hour after taking his pills, and to keep a written log of the readings for our follow-up visit, at which time we will make any necessary medication changes. I also strongly encouraged him to increase his physical activity to combat post-mcc weight gain and improve his overall health. Medications: New gabapentin To be taken in the morning and afternoon & 300mg at Night 100 mg PO BID 180 caps 0RF 90 days Patient Instructions: - Start taking one capsule of Gabapentin 100 mg in the morning and one capsule in the afternoon. - Continue taking your Gabapentin 300 mg dose at night. - Check your blood pressure three times a week for the next four weeks. - When you check your blood pressure, do it one hour after you have taken your blood pressure pills. - Write down your blood pressure readings and bring the list with you to your next appointment. - A 90-day supply of your amlodipine medication will be sent to your pharmacy. - Increase your physical activity. This can include going to the gym, swimming, or other sports. - Schedule a follow-up appointment in four weeks.
--- OUTSIDE RECORDS SUMMARY | 2025-01-09 09:20 | XMS_ITS | Patient Health Record ---
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
== END 2025-01-09 09:31 | disposition home or self-care (01) ==
LOC: HO.HMCHD 08:51
PROVIDERS: PCP Student in an Organized Health Care Education/Training Program; Visit Provider Student in an Organized Health Care Education/Training Program
DX: G62.9 Polyneuropathy, unspecified (principal); I10 Essential (primary) hypertension; I51.7 Cardiomegaly; R06.00 Dyspnea, unspecified

== ENCOUNTER → 2025-01-09 08:51 | Outpatient (BNVA) | payer MEDICARE, MEDICAID, SELFPAY | PROVIDERS: PCP Internal Medicine; Visit Provider Student in an Organized Health Care Education/Training Program | DX: G62.9 Polyneuropathy, unspecified (principal); I10 Essential (primary) hypertension; I51.7 Cardiomegaly; R06.00 Dyspnea, unspecified; M10.9 Gout, unspecified; Z79.899 Other long term (current) drug therapy; Z13.31 Encounter for screening for depression; Z13.39 Encounter for screening examination for other mental health and behavioral disorders | CPT/HCPCS: 96127; 99212 ==

== ENCOUNTER → 2025-01-25 08:54 | Outpatient (REF) | payer MEDICARE, MEDICAID, SELFPAY ==
--- OUTSIDE RECORDS SUMMARY | 2025-01-25 09:28 | XMS_ITS | Patient Health Record ---
Author Organization [facility] Address [address] [place] [address] Care Team Providers Care Customer Care Representative Name Role Phone John FAUSTIN, Robby Primary Care Provider UnavailTanya Lyn Unavailable [phone] Allergies Allergen (clinical drug ingredient) Drug/Non Drug [...] Medicare [employer] [address] [place] [address] [id number] Miguel Charles Self - patient is the insured Medical (General) History Medical History History ICD Code Cataracts Gout High blood pressure Poor circulation Chicken pox Surgical History Surgery Date(Month/Year)
== END ==
LOC: HO.SL 08:54
PROVIDERS: PCP Internal Medicine; Visit Provider Internal Medicine
DX: G47.33 Obstructive sleep apnea (adult) (pediatric) (principal); R06.83 Snoring; R40.0 Somnolence
CPT/HCPCS: 95806

== ENCOUNTER → 2025-01-25 09:02 | Outpatient (BNV) | payer MEDICARE, MEDICAID, SELFPAY | PROVIDERS: PCP Internal Medicine; Visit Provider Psychiatry & Neurology Neurology | DX: G47.33 Obstructive sleep apnea (adult) (pediatric) (principal) | CPT/HCPCS: 95806 ==

== ENCOUNTER 2025-02-09 13:32 | Outpatient (AMB) | payer MEDICARE, MEDICAID, SELFPAY ==
--- NOTE | 2025-02-09 13:35 | MHC.PC.OV ---
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: No Accompanied by: Self / Same As Patient Allergies No Known Allergies (No Known Allergies*) Allergy (Verified 02/09/25 13:35) Medication List - Last Reconciled 02/09/25 by Guido Castillo MD allopurinol 300 mg PO DAILY amlodipine 10 mg PO DAILY 90 days gabapentin 300 mg PO BEDTIME lisinopril 40 mg PO DAILY loratadine (Claritin) 10 mg PO DAILY Tobacco use date assessed: 10/03/24 Fall risk assessment: No Falls in past year Last assessed Fall Risk: 02/09/25 Dental Screening Dental Screen Date: 01/09/25 HPI HPI Comments History of Present Illness Details History of Present Illness The patient is a 80 year old male presenting for a follow-up visit for management of chronic conditions. He reports feeling well overall. Regarding his neuropathy, the patient reports that gabapentin, which was previously added to his regimen, is not providing benefit and is causing side effects including dizziness and daytime somnolence. He describes the neuropathy as numbness rather than pain, but it affects his ability to walk and drive. He feels the medication exacerbates the numbness. The patient has a history of high blood pressure, and his reading today is elevated at 160/70 mmHg. He is currently taking amlodipine 10 mg and lisinopril 30 mg. He has a known enlarged prostate which causes nocturia, waking him up approximately four times a night to urinate. He is not currently taking any medications for this condition. Sleep apnea was recently discussed, but the patient is hesitant to start CPAP therapy, particularly due to his frequent nighttime awakenings. He plans to reconsider treatment after the holidays. He has a history of gout but reports no recent flares. He has never smoked. His weight has increased from 180 pounds at senior care to almost 230 pounds currently, and he acknowledges consuming junk food. Medical History: - Hypertension - Neuropathy - History of Gout, with no recent flares - Sleep Apnea - Benign Prostatic Hyperplasia Medications: - Amlodipine 10 mg for hypertension - Lisinopril 30 mg for hypertension - Gabapentin for neuropathy, taken in the morning, afternoon, and at night Diagnostic Results: - Vitals: Blood pressure 160/70 mmHg. - Labs: Last blood work was in July. Social History - Tobacco Use: Denies ever smoking. - Nutrition: Reports eating junk food and has gained approximately 50 pounds since senior care. [facility] Medical History (Updated 02/09/25 @ 13:56 by Guido Castillo MD) Obesity (BMI 30.0-34.9) MC (obstructive sleep apnea) BPH loc w urin obs/LUTS Dyspnea Neuropathy Mobitz type 1 second degree atrioventricular block Aortic valve calcification Essential hypertension Hypertension Family History (Updated 01/09/25 @ 09:04 by Emeli Ortiz MA) Son Colon cancer Brother History of open heart surgery Mother No problems noted. Father No problems noted. Social History Housing: Apartment Alcohol intake: former Year quit: 2010 Patient Tobacco Use Status: Never used Tobacco e-Cigarette/Vaping Use: Never Used service: No Current occupational status: retired Cognitive needs: No Hearing needs: No Vision needs: Yes (Reading galsses) Questionnaire Thrive Questionnaire Date Thrive assessed: 01/09/25 LESLEY-7 AMB Questionnaire LESLEY-7 Date LESLEY - 7 assessed: 01/09/25 Source: Developed by Drs. Zaid Strange, Laureen Marques, Geoffrey Abdi and colleagues, with an educational laverne from [employer]. Review of Systems Narrative Review of Systems - General: Denies complaints. - Neurological: Reports numbness in feet affecting walking and driving, dizziness, and daytime somnolence. - Genitourinary: Reports nocturia, waking 4 times per night. - Musculoskeletal: Denies gout flares. All systems reviewed & are unremarkable except as reviewed in HPI and above Physical exam (Primary Care) Vital Signs: Last Vital Signs Temp 98.2 F 02/09/25 13:38 Pulse 72 02/09/25 13:38 Resp 22 H 02/09/25 13:38 BP 160/68 H 02/09/25 13:38 Pulse Ox 97 02/09/25 13:38 Oxygen Delivery Method Room Air 02/09/25 13:38 BMI result Body Mass Index 32.9 Tobacco/Smoking Status: Tobacco use Status Tobacco use date assessed 10/03/24 02/09/25 13:40 Patient Tobacco Use Status Never used Tobacco 02/09/25 13:40 e-Cigarette/Vaping Use Never Used 02/09/25 13:40 Thrive Assessment: Date of Thrive Assessment Date Thrive assessed 01/09/25 02/09/25 13:40 Narrative Physical Exam General: +Alert and oriented, Well nourished, No acute distress. Eye: Pupils are equal, round and reactive to light, Intact accommodation, Extraocular movements are intact, Normal conjunctiva, Vision unchanged. HENT: Normocephalic, Atraumatic, Tympanic membranes are clear, Normal hearing, Oral mucosa is moist, No pharyngeal erythema, Ear canals patent. Respiratory: Lungs CTA bilaterally, No wheeze, Respirations are non-labored. Cardiovascular: Regular rate, Regular rhythm, S1 auscultated, S2 auscultated, No murmur, Good pulses equal in all extremities, Normal peripheral perfusion, No edema. Gastrointestinal: Soft, Non-tender, Non-distended, Normal bowel sounds, No organomegaly. Musculoskeletal: Normal range of motion, Normal strength, No tenderness, No swelling, No deformity, Normal gait. Integumentary: Warm, Dry, [place], Intact. Neurologic: Alert, Oriented, Normal sensory, Normal motor function, No focal defects, Cranial Nerves II-XII are grossly intact, Normal deep tendon reflexes. Psychiatric: Cooperative, Appropriate mood & affect, Normal judgment. Coding Level of Care Code Est Pt Level 4 (90323) Add On Problem Visit Only Diagnoses Essential hypertension I10 Neuropathy G62.9 BPH loc w urin obs/LUTS N40.1 MC (obstructive sleep apnea) G47.33 Obesity (BMI 30.0-34.9) E66.811 Assessment & Plan Assessment & Plan (1) Essential hypertension: Comment: - The patient's blood pressure is elevated at 160/70 mmHg despite being on amlodipine 10 mg & lisinopril 30mg. - The plan is to increase the lisinopril dose from 30 mg to 40 mg daily. - A new prescription will be sent to the pharmacy. Code(s): I10 - Essential (primary) hypertension Category: Medical (2) Neuropathy: Comment: - The patient reports side effects of dizziness and somnolence from gabapentin without benefit for his foot numbness, stating it worsens the numbness. - The plan is to discontinue the morning and afternoon doses of gabapentin and continue only the nighttime dose. Code(s): G62.9 - Polyneuropathy, unspecified Category: Medical (3) BPH loc w urin obs/LUTS: Comment: - The patient reports nocturia, waking 4 times per night. - He is not currently on medication for this. - The plan is to start tamsulosin 0.4 mg to be taken once nightly to help with urinary symptom Code(s): N40.1 - Benign prostatic hyperplasia with lower urinary tract symptoms Category: Medical (4) MC (obstructive sleep apnea): Comment: - The patient remains hesitant to start CPAP therapy, which was recommended to protect his heart, help control blood pressure, and prevent atrial fibrillation. - He wishes to defer a decision until after the holidays. - The plan is to provide a prescription for a CPAP machine for him to fill when he is ready. Code(s): G47.33 - Obstructive sleep apnea (adult) (pediatric) Category: Medical (5) Obesity (BMI 30.0-34.9): Comment: - The patient's weight has increased to 230 lbs, and he is about 50 lbs overweight. - A healthy diet, salt reduction, and weight loss were strongly recommended. - It was explained that weight loss could potentially resolve the need for CPAP therapy. - He was encouraged to aim for his previous weight of 180 lbs. Code(s): E66.811 - Obesity, class 1 Category: Medical Plan: Health Maintenance: - Last blood work was in July. - Diet: Recommended to eat healthy, cut out salt, and avoid junk food. - Weight Management: Advised to lose weight, with a goal of returning to his prior weight of 180 lbs from his current weight of nearly 230 lbs. - Sleep Apnea Management: Strongly recommended use of CPAP to protect his heart, help his blood pressure, and prevent atrial fibrillation. Patient was informed and verbally consented to the use of an ambient scribe for clinic note documentation during this visit. Plan I discussed the patient's elevated blood pressure reading of 160/70 mmHg and the need for better control. We will increase his lisinopril from 30 mg to 40 mg daily and continue amlodipine 10 mg. We addressed his concerns about gabapentin, which he feels is causing dizziness and somnolence without improving his neuropathy. We agreed to stop the morning and afternoon doses and continue only the nighttime dose to mitigate these side effects. I addressed his nocturia, which is disrupting his sleep, by prescribing tamsulosin 0.4 mg nightly to help with his enlarged prostate. I strongly recommended CPAP therapy for his sleep apnea, explaining that it would protect his heart, help his blood pressure, prevent atrial fibrillation, and improve his restfulness. The patient wishes to wait until after the holidays to start; I provided a prescription for him to get the machine when he is ready. We also discussed the importance of weight loss, a healthy diet, and reducing salt intake, noting that losing weight could improve his sleep apnea. A follow-up is scheduled in three months to monitor his progress. Medications: New tamsulosin 0.4 mg PO BEDTIME 90 caps 0RF lisinopril 40 mg PO DAILY 90 tabs 1RF Discontinued lisinopril Discontinued Reason: Doctor's Order 30 mg PO DAILY 90 tabs 3RF gabapentin To be taken in the morning and afternoon & 300mg at Night Discontinued Reason: Doctor's Order 100 mg PO BID 90 days 180 caps 0RF Patient Instructions: - Your blood pressure is high. We are increasing your lisinopril dose from 30mg to 40mg. Continue taking your amlodipine 10mg. A new prescription for lisinopril will be sent to your pharmacy. - Stop taking your gabapentin in the morning and afternoon. Only take the one dose at night. - To help with waking up at night to urinate, we are starting a new medication called tamsulosin. Take one pill (0.4mg) every night. - It is strongly recommended that you use a CPAP machine for your sleep apnea. This will help your blood pressure, protect your heart, and help you feel more rested. You can decide to start this after the holidays. - Please work on eating a healthier diet, cutting down on salt, and trying to lose weight. This can improve your blood pressure and may help your sleep apnea. - We will see you back in the office in three months.
[2025-02-09 13:38] VITALS: BP 160/68; PULSE 72; RESP 22; TEMP 36.8; O2SAT 97; BMI 32.9
== END 2025-02-09 13:54 | disposition home or self-care (01) ==
LOC: HO.HMCHD 13:33
PROVIDERS: PCP Internal Medicine; Visit Provider Student in an Organized Health Care Education/Training Program
DX: I10 Essential (primary) hypertension (principal); G62.9 Polyneuropathy, unspecified; N40.1 Benign prostatic hyperplasia with lower urinary tract symptoms; G47.33 Obstructive sleep apnea (adult) (pediatric); E66.811 Obesity, class 1

== ENCOUNTER → 2025-02-09 13:32 | Outpatient (BNVA) | payer MEDICARE, MEDICAID, SELFPAY | PROVIDERS: PCP Internal Medicine; Visit Provider Student in an Organized Health Care Education/Training Program | DX: I10 Essential (primary) hypertension (principal); G62.9 Polyneuropathy, unspecified; N40.1 Benign prostatic hyperplasia with lower urinary tract symptoms; N13.8 Other obstructive and reflux uropathy; R35.1 Nocturia; G47.33 Obstructive sleep apnea (adult) (pediatric); E66.811 Obesity, class 1; Z68.32 Body mass index [BMI] 32.0-32.9, adult; Z79.899 Other long term (current) drug therapy | CPT/HCPCS: 99212 ==